=== PATIENT | male | born 1990 | race African-American/Black ===

== ENCOUNTER 2017-11-01 22:05 | Emergency (ER) | payer SELFPAY ==
[~2017-11-01] VITALS: Ht 175.3 cm; Wt 85.3 kg
[2017-11-01 23:22] LABS: HEMATOCRIT 41.2 % (38.0-50.0); HEMOGLOBIN 14.2 G/DL (12.5-16.6); MCH 28.2 PG (29.0-34.0); MCHC 34.5 G/DL (30.0-36.0); MCV 81.7 FL (86-99); PLATELET COUNT 289 K/uL (156-360); RBC DIS.WIDTH-CV 13.1 % (11.8-14.6); RBC DIS.WIDTH-SD 38.5 % (39-53); RED BLOOD COUNT 5.04 M/uL (4.00-5.50); WHITE BLOOD COUNT 9.9 K/uL (4.1-10.2)
[2017-11-01 23:32] LABS: ALBUMIN 4.7 g/dL (3.2-4.8)
[2017-11-01 23:33] LABS: CHLORIDE 103 mEq/L (99-109); SODIUM 140 mEq/L (136-147)
[2017-11-01 23:35] LABS: GLUCOSE 104 mg/dL (70-99); TOTAL PROTEIN 7.1 g/dL (6.4-8.3)
[2017-11-01 23:37] LABS: APPEARANCE CLEAR ((CLEAR)); BILIRUBIN NEGATIVE; BLOOD NEGATIVE; COLOR YELLOW ((YELLOW)); GLUCOSE (STRIP) NEGATIVE; KETONES NEGATIVE; LEUKOCYTES NEGATIVE; NITRITE NEGATIVE; PROTEIN (STRIP) NEGATIVE; SPECIFIC GRAVITY 1.012 (1.000-1.030); UROBILINOGEN 0.2 MG/DL (0.2-1.0)
[2017-11-01 23:37] LABS: TOTAL BILIRUBIN 0.2 mg/dL (0.0-1.0)
[2017-11-01 23:38] LABS: ALKALINE PHOSPHATASE 46 IU/L (3-129)
[2017-11-01 23:39] LABS: GFR ESTIMATE (CALCULATED) > 59 mL/min/ (58.99-99999)
[2017-11-01 23:40] LABS: AST (GOT) 29 IU/L (2-34); UREA NITROGEN (BUN) 13 mg/dL (9-23)
[2017-11-01 23:42] LABS: ALT (GPT) 15 IU/L (3-49); LIPASE 80 U/L (1.0-51.0)
[2017-11-02] MEDS ORDERED: PEPCID20 MG PO (00:19)
[2017-11-02] MEDS ORDERED: CARAFATE1 GM PO (00:19)
[2017-11-02 00:29] VITALS: BP 157/115
== END 2017-11-02 00:20 | disposition home or self-care (01) ==
LOC: EME 22:05
PROVIDERS: Physician Assistant
DX: R10.13 Epigastric pain (principal)
CPT/HCPCS: 80053; 81003; 83690; 85027; 99281; 99284